=== PATIENT | male | born 1960 | race Caucasian/White ===

== ENCOUNTER 2024-09-23 10:53 | Emergency (ER) | payer MEDICARE, OTHER, SELFPAY ==
[2024-09-23 10:54] VITALS: BP 130/75; PULSE 102; RESP 16; TEMP 36.6; O2SAT 98; BMI 34.1
--- NOTE | 2024-09-23 11:21 | EKG12_ITS ---
Test Reason : SOB Blood Pressure : */* mmHG Vent. Rate : 94 BPM Atrial Rate : 94 BPM P-R Int : 182 ms QRS Dur : 88 ms QT Int : 354 ms P-R-T Axes : 35 -6 9 degrees QTcB Int : 442 ms Normal sinus rhythm Minimal voltage criteria for LVH, may be normal variant ( R in aVL ) Borderline ECG Confirmed by FIDENCIO DUNCAN, YOSSI ([id number]), digital editor SHAYNE ROSAS ([id number]) on 09/28/2024 9:01:30 AM Referred By: JANET/RU Confirmed By: YOSSI NICOLAS MD
--- NOTE | 2024-09-23 11:21 | RAD_ITS ---
PROCEDURE: CHEST PA AND LATERAL 09/23/2024 REASON FOR EXAM: PLEURITIC RIGHT-SIDED CHEST PAIN TECHNIQUE: Frontal and lateral views of the chest. COMPARISON: None FINDINGS: Hardware: EKG electrodes are seen. Heart: Heart size is upper limits of normal. Mediastinum: The mediastinal contour is unremarkable. Lungs: Focal increased markings are seen in the posterior medial segment of the right lower lobe. Early infiltrate should be ruled out. Bones: Degenerative changes are identified within the thoracic spine. RAD/Chest PA and Lateral IMPRESSION: Findings suggestive of focal right lower lobe infiltrate. Reading Location: [id number]
[2024-09-23 11:40] LABS: Absolute Lymphocyte Count 1.24 X10^3/uL (0.83-4.51); Absolute Neutrophil Count 4.8 X10^3/uL (2.0-7.7); Basophil# 0.04 X10^3/uL; Basophil% 0.6 % (0-1); Eosinophils% 2.9 % (0-5); Hematocrit 40.3 % (40-54); Hemoglobin 14.3 g/dL (13.0-16.5); Lymphocyte # 1.24 X10^3/ul (0.83-4.51); Lymphocyte % 17.7 % (19-41); Mean Corp Hgb Conc 35.5 g/dL (32-36); Mean Corpuscular Hgb 33.4 pg (27.0-32.0); Mean Corpuscular Volume 94.2 fL (80-94); Mean Platelet Vol. 9.2 fl (6.2-12.0); NRBC Flagged by Analyzer 0 % (0-5); Neutrophil # 4.78 X10^3/uL (2.7-7.7); Neutrophil % 68.4 % (47-70); Platelet Count 184 K/mm3 (150-450); RBC Distribution Width CV 12.2 % (11.6-14.6); RBC Distribution Width SD 42.3 fl (35.1-43.9); Red Blood Count 4.28 M/mm3 (4.6-6.2)
[2024-09-23 11:52] LABS: D-Dimer Quantitative (DVT/PE) 0.33 FEU/ug/m (0.27-0.49)
[2024-09-23 11:58] VITALS: BP 138/77; PULSE 85; RESP 17; O2SAT 96
[2024-09-23 12:00] VITALS: BP 130/84; PULSE 85; RESP 16; O2SAT 96
--- NOTE | 2024-09-23 12:05 | EDS_ITS ---
HPI History of Present Illness Chief Complaint: Chest Pain Detail of Chief Complaint: Right-sided pleuritic chest pain that started several days ago. Informant: patient and spouse/S.O. Onset/Context/Timing Onset: Days Activity at onset: sudden and rest Timing: Continuous and Waxes and wanes Quality: Positive for Aching Location: Right Chest Current Severity: Mild Maximum Severity: Severe Worsened By: Movement of Arm, Movement of Torso, Palpation and Breathing Relieved By: Nothing Associated Symptoms: Positive for Dyspnea and Cough; Negative for Nausea, Vomiting, Diaphoresis, Fever, Lightheadedness, Acid Reflux or Palpitations Narrative Narrative: Patient is a 64-year-old gentleman. He is on disability due to cervical fusion C4-7, chemical exposure to his lungs with restrictive lung disease with 30% capacity. He also has history of COPD. He has no history of PE or DVT. He denies leg pain, swelling discoloration. He denies trauma. He denies fever or chills. Denies headache, visual, ocular auditory symptoms. He denies sore throat. He has mild congestion. states he will need a metal sheet roller operator in the area since her here significant out of time. Also he is undergoing rheumatoid workup for possible RA. She states she will need a general practitioner as well. Prior Similar Symptoms: No Recent Illness/Hospitalization: No PE Risk Factors: Positive for Recent Travel/Surgery; Negative for Recent Immobilization, Prior DVT or PE, Cancer or OCP + Smoking + >/=35 TAD Risk Factors: Positive for Hypertension; Negative for Marfan's Syndrome or Family History [facility] Medical History Tremors of nervous system PTSD (post-traumatic stress disorder) COPD (chronic obstructive pulmonary disease) Home Medications ?Medication ?Instructions ?Recorded ?Last Taken ?Type doxycycline monohydrate 100 mg 100 mg PO BID #14 CAPSU LES 09/23/24 Unknown Rx capsule Allergy/AdvReac Type Severity Reaction Status Date / Time No Known Allergies Allergy Verified 09/23/24 11:32 Surgical History (Updated 09/23/24 @ 11:29 by Yohana Orozco) H/O discectomy Social History (Updated 09/23/24 @ 12:[address] Buck Her MD) household members: spouse Smoking Status: Former smoker ROS ROS ED Constitutional Constitutional ED: Reports chills and sweats; Denies fever(s), subjective or weight loss Eyes Eyes: Reports none ENT ENT ED: Denies ear pain, rhinorrhea or sore throat Cardiovascular Cardiovascular: Reports as per HPI; Denies orthopnea or paroxysmal nocturnal dyspnea Respiratory/Chest Respiratory/Chest: Reports cough, dyspnea and dyspnea on exertion; Denies orthopnea or paroxysmal nocturnal dyspnea Gastrointestinal Gastrointestinal: Denies abdominal pain, melena, nausea or vomiting Genitourinary Genitourinary ED: Denies dysuria, hematuria or urinary frequency Musculoskeletal Musculoskeletal: Denies arthralgias or myalgias Integumentary Denies rash Neurologic Neurologic: Denies headache(s) or paresthesias Psychiatric Psychiatric: Denies anxiety or depression Endocrine Endocrinology: Denies cold intolerance or heat intolerance Hematologic/Lymphatic Hematologic/Lymphatic: Denies easy bleeding or easy bruising EXAM Physical Exam Const Vital Signs: 09/23/24 10:54 09/23/24 11:27 09/23/24 11:58 Temperature 97.9 F Temperature Source Oral Pulse Rate 102 H 85 Respiratory Rate 16 17 Respiratory Effort Normal Blood Pressure 130/75 H 138/77 H Blood Pressure Mean 93 97 Pulse Ox 98 96 Oxygen Delivery Method Room Air Room Air 09/23/24 12:00 09/23/24 13:00 Temperature Temperature Source Pulse Rate 85 86 Respiratory Rate 16 16 Respiratory Effort Blood Pressure 130/84 H 138/71 H Blood Pressure Mean 99 93 Pulse Ox 96 96 Oxygen Delivery Method Room Air Room Air Positive well nourished and well developed Constitutional Narrative: BMI is 34.1. General Appearance ED: well developed HEENT Reports TM's clear and moist mucous membranes normocephalic and atraumatic Tympanic Membrane ED: Yes TM's clear Eyes PERRL and EOMs intact bilaterally General Eye ED: Negative for pale conjunctiva or scleral icterus Neck no lymphadenopathy, supple and no JVD Chest Wall inspection of chest normal and palpation of chest normal Chest Narrative: Patient has pain to palpation right side. There is no skin lesions noted. There is no crepitus or subcutaneous air. Resp normal respiratory effort and clear to auscultation bilaterally Cardio regular rate, regular rhythm, S1 normal heart sound, S2 normal heart sound and no murmurs GI normal to inspection, nondistended, normoactive bowel sounds, soft to palpation, non-tender, non-distended and no masses; Negative for hepatosplenomegaly Back/Spine no CVA tenderness and no thoracic nor lumbar tenderness Extremity normal to inspection General Extremety ED: Negative for edema or pulses abnormal General Extremity: Negative for edema or pulses abnormal Neuro oriented x3, CN's II-XII intact bilaterally, no sensory deficits noted and gait normal Sensorium / Orientation: awake and alert Motor Exam: strength 5/5 throughout Psych mental status grossly normal Skin no rashes or lesions noted and no wounds MDM MDM MDM Narrative Medical decision making narrative: Differential diagnosis is pleurisy, pneumonia, pneumothorax, pulmonary embolus and musculoskeletal since there is a muscular component. Workup included chest x-ray, D-dimer, CBC and electrolytes to assess for endorgan dysfunction. Lab Data Attestation: I reviewed the patient's lab results. Lab results narrative: CBC is unremarkable. Electrolyte panel is unremarkable. Glucose slightly elevated 100 with normal CO2 anion gap. Labs: Laboratory Results - last 24 hr 09/23/24 11:28 WBC 7.0 RBC 4.28 L Hgb 14.3 Hct 40.3 MCV 94.2 H MCH 33.4 H MCHC 35.5 RDW Std Deviation 42.3 RDW Coeff of Nighat 12.2 Plt Count 184 MPV 9.2 Immature Gran % (Auto) 0.400 Neut % (Auto) 68.4 Lymph % (Auto) 17.7 L [place] % (Auto) 10.0 Eos % (Auto) 2.9 Baso % (Auto) 0.6 Absolute Neuts (auto) 4.8 Absolute Lymphs (auto) 1.24 Nucleated RBC % 0 D-Dimer Quant (PE/DVT) 0.33 Sodium 131 L Potassium 4.5 Chloride 97 L Carbon Dioxide 23.6 Anion Gap 10 BUN 13 Creatinine 0.78 Estim Creat Clear Calc 122.03 Est GFR (MDRD) Non-Af 99 BUN/Creatinine Ratio 17.1 Glucose 100 H Calcium 9.2 Radiography Chest X-Ray - ED: 2 View and Read by ED Physician (Independently reviewed interpreted by me as negative for congestive heart failure or effusion, pneumothorax. There is evidence of a small right lower infiltrate probably superior segment of the right lower lobe. Cardiac size is normal. Osseous structures reveal no abnormality) Diagnostic Testing: Clinical Impression(s) from Imaging Studies Chest X-Ray 09/23/24 11:21 IMPRESSION: Findings suggestive of focal right lower lobe infiltrate. Reading Location: [id number] Treatment and Re-Evaluation :: Curb 65 score is 0. PSI/port score is 64. Risks class II with a 0.6 to 0.9% mortality. Patient is appropriate for outpatient therapy. He was treated with doxycycline. Discharge Plan Triage Chief Complaint: Chest Pain ED Provider: Buck Her Dx/Rx/DC Orders Clinical Impression: Right lower lobe pneumonia, Pleuritic chest pain, History of COPD, Diabetes mellitus with hyperglycemia, Chronic restrictive lung disease Instructions: ED Pneumonia (Adult) Prescriptions: New doxycycline monohydrate 100 mg capsule 100 mg PO BID Qty: 14 0RF Primary Care Provider: KATHI PARADA Referrals: KATIH PARADA [Other] Bridgette Feldman MD [Med Staff - Supervisor Fine Grading] - 3-5 Days Isael Johnson DO [Med Staff - Active Staff] - 1-2 Weeks Jethro Chapman MD [Med Staff - Courtesy Staff] - 1-2 Weeks Activity Restrictions/Additional Instructions: Take medication as prescribed and until gone. You are referred to Dr. Zaragoza as he has a general internal medicine doctor. You were referred to Dr. Isael Johnson who is a metal sheet roller operator. In your referred to Dr. Jethro Chapman who is an dowel pin man. Print Language: Swedish Disposition Disposition: Home, Self Care
[2024-09-23 12:33] LABS: Anion Gap 10 (5-15); BUN 13 mg/dL (4-19); BUN/Creat Ratio 17.1 RATIO (10-20); Calcium,Total 9.2 mg/dL (7.6-11.0); Carbon Dioxide 23.6 mmol/L (21.0-32.0); Chloride 97 mmol/L (98-108); Creatinine, Serum 0.78 mg/dL (0.70-1.20); EST Glomerular Filtration Rate 99 (>60); Estimated Creatinine Clearance 122.03 ml/min (50-250); Glucose 100 mg/dL (70-99); Potassium 4.5 mmol/L (3.3-5.1); Sodium Level 131 mmol/L (133-145)
[2024-09-23 13:00] VITALS: BP 138/71; PULSE 86; RESP 16; O2SAT 96
[2024-09-23 13:17] VITALS: BP 125/74; PULSE 91; RESP 22; TEMP 36.9; O2SAT 97
[2024-09-23] MEDS: Doxycycline 100 MG CAPSULE PO (13:18)
== END 2024-09-23 13:34 | disposition home or self-care (01) ==
PROVIDERS: Emergency Provider Emergency Medicine; Visit Provider Emergency Medicine
DX: J18.9 Pneumonia, unspecified organism (principal); J44.9 Chronic obstructive pulmonary disease, unspecified; E11.65 Type 2 diabetes mellitus with hyperglycemia; R07.89 Other chest pain; Z87.891 Personal history of nicotine dependence; J98.4 Other disorders of lung; I10 Essential (primary) hypertension
CPT/HCPCS: 71046; 80048; 85025; 85379; 93005; 99284; A4216

== ENCOUNTER → 2025-01-21 | Outpatient (CLI) | payer MEDICARE, OTHER, SELFPAY ==
--- NOTE | 2025-01-21 12:43 | RAD_ITS ---
PROCEDURE: CHEST PA AND LATERAL 01/21/2025 REASON FOR EXAM: COUGH TECHNIQUE: Procedure Code: RADCXR Modality: DX Procedure: CHEST PA AND LATERAL COMPARISON: Prior study dated September 23, 2024. FINDINGS: Hardware: None Heart: Heart size is upper limits of normal. Mediastinum: The mediastinal contour is unremarkable. Lungs: The lungs are clear. Bones: The bones are unremarkable. RAD/Chest PA and Lateral IMPRESSION: NO ACUTE FINDINGS. Reading Location: [id number]
== END | disposition home or self-care (01) ==
PROVIDERS: Referring Provider Physician Assistant Surgical; Visit Provider Physician Assistant Surgical
DX: R05.9 Cough, unspecified (principal)
CPT/HCPCS: 71046

== ENCOUNTER 2025-01-23 11:29 | Emergency (ER) | payer MEDICARE, OTHER, SELFPAY ==
[2025-01-23 11:30] VITALS: BP 143/92; PULSE 87; RESP 14; TEMP 37.2; O2SAT 96; BMI 33.0
[2025-01-23 12:18] VITALS: PULSE 87; RESP 16
--- NOTE | 2025-01-23 12:18 | EDS_ITS ---
HPI History of Present Illness Chief Complaint: Shortness of Breath Narrative Narrative: Patient is a 64-year-old male with past medical history of ulcerative colitis, anemia, prediabetic, hypertension, PTSD, COPD who presents to the emergency department with a chief complaint of cough, congestion and not feeling well. He is also complaining of blood coming from his left ear. Patient denies any trauma to his ear he states that he woke up and noted that he had blood in his ear. Patient states that he is around his grandchild currently and notes that she has been sick recently. They note that he has been ill for the last several days and they went to urgent care which she was given azithromycin which she has been taking for 3 days and was given steroid pack. They state that they have not started the steroids yet because his liver enzymes have been out of whack ever since doing a treatment and wanted to be sure that this was okay therefore they were trying to get a hold of his physician [facility] Medical History Ulcerative colitis Anemia Diabetes Heart disease Gout Hypertension Tremors of nervous system PTSD (post-traumatic stress disorder) COPD (chronic obstructive pulmonary disease) Home Medications ?Medication ?Instructions ?Recorded ?Last Taken ?Type allopurinol 100 mg tablet 100 mg PO QDAY 01/21/25 Unkn own History ascorbic acid (vitamin C) 500 mg 500 mg PO QDAY Unknown History tablet aspirin 81 mg tablet,delayed 81 mg PO QDAY 01/21/25 Un known History release (Adult Aspirin Regimen) azithromycin 250 mg tablet See Rx Instructions PO .COM PLEX #6 01/21/25 Unknown Rx tabs carvedilol 6.25 mg tablet 6.25 mg PO BID 01/21/25 Unkn own History ergocalciferol (vitamin D2) 1,250 1,250 mcg PO QWEEK 0 01/21/25 Unknown History mcg (50,000 unit) capsule fenofibrate nanocrystallized 145 145 mg PO QDAY Unknown History mg tablet (Tricor) ipratropium bromide 21 mcg (0.03 2 spray intranasal BI D-TID PRN 01/21/25 Unknown Rx %) nasal spray postnasal drainage #30 mL lisinopril 20 mg tablet 20 mg PO QDAY 01/21/25 Unkno wn History mesalamine 1,000 mg rectal 4 g ND QHS PRN 01/21/25 Unk nown History suppository metformin 1,000 mg tablet 1,000 mg PO QDAY 01/21/25 Un known History methylprednisolone 4 mg tablets in 4 mg PO PER PKG DIR 6 days #21 tabs 01/21/25 Unknown Rx a dose pack (Medrol (Reese)) nortriptyline 10 mg capsule 10 mg PO QHS 01/21/25 Unkn own History primidone 50 mg tablet 50 mg PO QHS 01/21/25 Unknow n History albuterol sulfate 90 mcg/actuation 2 inh inhalation Q4 H PRN shortness 01/23/25 Unknown Rx breath activated powder inhaler of breath or wheezing #1 ea doxycycline hyclate 100 mg capsule 100 mg PO BID 5 day s #10 caps 01/23/25 Unknown Rx Allergy/AdvReac Type Severity Reaction Status Date / Time No Known Allergies Allergy Verified 01/23/25 11:30 Family History Other Cancer Heart disease Surgical History History of repair of macular hole History of vasectomy History of knee replacement H/O discectomy Social History household members: spouse Smoking Status: Former smoker alcohol intake: current alcohol intake frequency: 0-2 drinks per day Alcohol type: beer ROS ROS ED ROS Narrative Constitutional: Denies any fevers, chills, headaches Eyes, ears, nose: Complains of blood coming from the left ear as well as nasal congestion denies double vision blurry vision change in vision Cardiovascular: Denies chest pain Respiratory: Complains of cough states that he is coughing up more sputum than normal Abdomen: Denies nausea vomiting diarrhea : Denies urinary symptoms Neurological: Complains of generalized weakness denies any numbness or tingling Musculoskeletal: Denies back pain Skin: Denies any rashes or lesions EXAM Physical Exam Narrative Exam Narrative: General: Patient was lying in bed rest comfortably did not appear in any acute distress Head: Atraumatic, normocephalic Eyes, ears, nose, throat: Patient has a ruptured tympanic membrane at the 4 o'clock position in the left ear PERRL bilaterally, EOMI bilaterally, no conjunctival injection noted Neck: Soft, supple, trachea midline Cardiovascular: Regular rate and rhythm Respiratory: Clear to auscultation bilaterally no rales rhonchi or wheezes noted Abdomen: No tenderness to palpation Extremities: +5/5 strength noted in the bilateral upper and lower extremities Neurological: Patient following commands knew that he was at [facility] the year is 2024 Skin: Warm, dry, intact no rashes or lesions noted Const Vital Signs: 01/23/25 11:30 01/23/25 12:18 01/23/25 12:26 Temperature 98.9 F Temperature Source Temporal Pulse Rate 87 87 Respiratory Rate 14 16 Respiratory Effort Respiratory Depth Respiratory Pattern Normal Blood Pressure 143/92 H Blood Pressure Mean 109 Pulse Ox 96 Oxygen Delivery Method Room Air Room Air 01/23/25 12:28 01/23/25 13:30 01/23/25 15:00 Temperature Temperature Source Pulse Rate 76 79 Respiratory Rate 18 19 H Respiratory Effort Short of Breath Respiratory Depth Normal Respiratory Pattern Normal Blood Pressure 124/87 H 115/89 H Blood Pressure Mean 99 97 Pulse Ox 99 98 Oxygen Delivery Method Room Air Room Air MDM MDM MDM Narrative Medical decision making narrative: Patient is a 64-year-old male who presents to the emergency department chief co mplaint of generalized fatigue, cough, shortness of breath, blood coming from the left ear. On the differential diagnose includes but limited to ruptured tympanic membrane, pneumonia, pneumothorax, ACS, CHF. Once workup is obtained reviewed he will be reevaluated. Patient be given liter of IV fluids as well as DuoNebs. [place] Score (Revised) for Pulmonary Embolism from [email or web address] on 01/23/2025 All calculations should be rechecked by clinician prior to use RESULT SUMMARY: 3 points Low risk group: 7-9% incidence of PE from several studies. INPUTS: Age >65 ?> 0 = No Previous DVT or PE ?> 0 = No Surgery (under general anesthesia) or lower limb fracture in past month ?> 0 = No Active malignant condition ?> 0 = No Unilateral lower limb pain ?> 0 = No Hemoptysis ?> 0 = No Heart rate ?> 3 = 75-94 Pain on lower limb palpation and unilateral edema ?> 0 = No Patient CBC reviewed showed no evidence leukocytosis white blood count normal 7.4, hemoglobin 14.5, platelet count 154. Patient sodium was 136, potassium normal 4.6, creatinine was 0.79. Patient's troponin was 7 with a delta troponin of 7. Patient's EKG was reviewed as well which showed sinus rhythm with a rate of 83 bpm with ND interval normal at 182. Patient proBNP was less than 36. Patient's chest x-ray reviewed by myself and by radiology showed no acute cardiopulmonary processes. Patient ambulated well here in the emergency department no hypoxia no tachycardia. He was advised to discontinue azithromycin and start taking doxycycline that was sent to his pharmacy he will be given a MDI albuterol inhaler for shortness of breath and wheezing for COPD. He is advised to start taking the steroids that he was prescribed by the urgent care as well. He is encouraged to return with worsening symptoms or any other concerns. He is advised to follow-up with his ears nose and throat physician for his ruptured tympanic membrane on the left side. They are agreeable with this plan all question concerns answered he is discharged home in stable condition. Lab Data Labs: Laboratory Results - last 24 hr 01/23/25 01/23/25 12:25 14:40 WBC 7.4 RBC 4.23 L Hgb 14.5 Hct 40.7 MCV 96.2 H MCH 34.3 H MCHC 35.6 RDW Std Deviation 41.4 RDW Coeff of [place] 11.8 Plt Count 154 MPV 9.8 Immature Gran % (Auto) 0.700 Neut % (Auto) 61.4 Lymph % (Auto) 26.9 [place] % (Auto) 7.6 Eos % (Auto) 2.7 Baso % (Auto) 0.7 Absolute Neuts (auto) 4.5 Absolute Lymphs (auto) 1.99 Nucleated RBC % 0 Sodium 136 Potassium 4.6 Chloride 101 Carbon Dioxide 22.4 Anion Gap 12 BUN 12 Creatinine 0.79 Estim Creat Clear Calc 121.16 Est GFR (MDRD) Non-Af 99 BUN/Creatinine Ratio 15.6 Glucose 106 H Calcium 8.9 Troponin T High Sens 7 Troponin T Hi Sens 2 Hr 7 NT pro BNP II < 36 Radiography Diagnostic Testing: Clinical Impression(s) from Imaging Studies Chest X-Ray 01/23/25 12:35 IMPRESSION: Negative for acute cardiopulmonary disease. Reading Location: [id number] Discharge Plan Triage Chief Complaint: Shortness of Breath ED Provider: Kip Tucker Dx/Rx/DC Orders Clinical Impression: Hypertension, Rupture of tympanic membrane, COPD exacerbation, Upper respiratory infection, viral Prescriptions: New albuterol sulfate 90 mcg/actuation aerosol powdr breath activated 2 inh inhalation Q4H PRN (Reason: shortness of breath or wheezing) Qty: 1 0RF doxycycline hyclate 100 mg capsule 100 mg PO BID 5 Days Qty: 10 0RF No Action aspirin [Adult Aspirin Regimen] 81 mg tablet,delayed release (DR/EC) 81 mg PO QDAY carvedilol 6.25 mg tablet 6.25 mg PO BID Rx Instructions: must administer with a meal/food primidone 50 mg tablet 50 mg PO QHS allopurinol 100 mg tablet 100 mg PO QDAY metformin 1,000 mg tablet 1,000 mg PO QDAY nortriptyline 10 mg capsule 10 mg PO QHS ascorbic acid (vitamin C) 500 mg tablet 500 mg PO QDAY fenofibrate nanocrystallized [Tricor] 145 mg tablet 145 mg PO QDAY lisinopril 20 mg tablet 20 mg PO QDAY ergocalciferol (vitamin D2) 1,250 mcg (50,000 unit) capsule 1,250 mcg PO QWEEK mesalamine 1,000 mg suppository 4 g ND QHS PRN azithromycin 250 mg tablet See Rx Instructions PO .COMPLEX Qty: 6 0RF Rx Instructions: take 500 mg today (day 1), then 250 mg for 4 days (days 2-5) PO ipratropium bromide 21 mcg (0.03 %) spray,non-aerosol 2 spray intranasal BID-TID PRN (Reason: postnasal drainage) Qty: 30 0RF Rx Instructions: administer into each nostril methylprednisolone [Medrol (Reese)] 4 mg tablets,dose pack 4 mg PO PER PKG DIR 6 Days Qty: 21 0RF Primary Care Provider: KATHI PARADA Referrals: KATHI PARADA [Other] Activity Restrictions/Additional Instructions: Start taking the steroids at urgent care prescribed you. Stop taking the azithromycin and take the doxycycline. Use inhaler that was sent to your pharmacy as prescribed. Return with worsening symptoms or other concerns. Follow-up with your ears nose and throat physician for the ruptured tympanic membrane in your left ear that is why there was blood in your ear. Do not put any drops or anything in your ear keep this dry. Print Language: Japanese Disposition Disposition: Home, Self Care
[2025-01-23 12:34] LABS: Hematocrit 40.7 % (40-54); Hemoglobin 14.5 g/dL (13.0-16.5); Immature Granulocytes Count 0.050 X10^3/uL (0.0-0.0); Mean Corp Hgb Conc 35.6 g/dL (32-36); Mean Corpuscular Volume 96.2 fL (80-94); Mean Platelet Vol. 9.8 fl (6.2-12.0); NRBC Flagged by Analyzer 0 % (0-5); Platelet Count 154 K/mm3 (150-450); RBC Distribution Width CV 11.8 % (11.6-14.6); RBC Distribution Width SD 41.4 fl (35.1-43.9); Red Blood Count 4.23 M/mm3 (4.6-6.2); White Blood Count 7.4 K/mm3 (4.4-11.0)
[2025-01-23] MEDS: 0.9% Normal Saline (1000mL) 1,000 ML 999 ML IV (12:35)
--- NOTE | 2025-01-23 12:35 | RAD_ITS ---
PROCEDURE: CHEST PA AND LATERAL 01/23/2025 REASON FOR EXAM: SOB TECHNIQUE: Procedure Code: RADCXR Modality: DX Procedure: CHEST PA AND LATERAL COMPARISON: Recent prior exam FINDINGS: Hardware and support lines: None. Heart: Upper limits of normal-size. Lungs: Negative for infiltrates, or pulmonary edema. Pleura: No pleural thickening. No pleural effusion. Mediastinum and aorta: Negative for hilar adenopathy. Mildly tortuous thoracic aorta. Bones: Slight degenerative changes of the shoulders. Age-appropriate degenerative changes of the spine. Other: Remainder of the exam negative. RAD/Chest PA and Lateral IMPRESSION: Negative for acute cardiopulmonary disease. Reading Location: [id number]
--- OUTSIDE RECORDS SUMMARY | 2025-01-23 12:38 | XMS RPT_ITS | CCD ---
Author Organization [facility] Care Team Providers Care Greeting Card Editor Name Role Phone TRAVON LORA Referring Unavailable TRAVON LORA Referring Unavailable TRAVON LORA Referring Unavailable Travon Lora Attending Unavailable Dr. Buck Her MD Emergency Provider KATHI PARADA Primary Care Provider SUJATHA KULKARNI Primary Care Unavailable Buck Her Attending Unavailable Dr. Buck Her MD Attending Provider [phone] Romulo Salinas Attending Provider Romulo Salinas Referring Provider [phone] Medications Current Medications Medication Drug Class(es) Dates Sig (Normalized) Sig (Original) allopurinol 100 mg oral tablet (1 source) Xanthine Oxidase Inhibitor Start: 01-21-2025 take 1 tablet by mouth once daily Allopurinol 100 mg tablet Active 100 mg PO daily January 21, 2025 12:00am ascorbic acid 500 mg oral tablet (1 source) Vitamin C Start: 01-21-2025 take 1 tablet by mouth once daily Ascorbic Acid (Vitamin C) 500 mg tablet Active 500 mg PO daily January 21, 2025 12:00am aspirin 81 mg delayed release oral tablet (1 source) Platelet Aggregation Inhibitor, Nonsteroidal Anti-inflammatory Drug Start: 01-21-2025 take 1 tablet by mouth once daily Aspirin (Adult Aspirin Regimen) 81 mg tablet,delayed release (DR/EC) Active 81 mg PO daily January 21, 2025 12:00am carvedilol 6.25 mg oral tablet (1 source) alpha-Adrenergic Corona, beta-Adrenergic Corona Start: 01-21-2025 take 1 tablet by mouth twice daily at mealtime Carvedilol 6.25 mg tablet Active 6.25 mg PO TWICE A DAY January 21, 2025 12:00am must administer with a meal/food ergocalciferol 1.25 mg oral capsule (1 source) Provitamin D2 Compound Start: 01-21-2025 Ergocalciferol (Vitamin D2) 1,250 mcg (50,000 unit) capsule Active 1250 ug PO EVERY WEEK January 21, 2025 12:00am fenofibrate 145 mg oral tablet (1 source) Peroxisome Proliferator Receptor alpha Agonist Start: 01-21-2025 take 1 tablet by mouth once daily Fenofibrate Nanocrystallized (Tricor) 145 mg tablet Active 145 mg PO daily January 21, 2025 12:00am lisinopril 20 mg oral tablet (1 source) Angiotensin Converting Enzyme Inhibitor Start: 01-21-2025 take 1 tablet by mouth once daily Lisinopril 20 mg tablet Active 20 mg PO daily January 21, 2025 12:00am mesalamine 1000 mg rectal suppository (1 source) Aminosalicylate Start: 01-21-2025 Mesalamine 1,000 mg suppository Active 4 g RC AT BEDTIME as needed January 21, 2025 12:00am metFORMIN hydrochloride 1000 mg oral tablet (1 source) Biguanide Start: 01-21-2025 take 1 tablet by mouth once daily Metformin 1,000 mg tablet Active 1000 mg PO daily January 21, 2025 12:00am nortriptyline 10 mg oral capsule (1 source) Tricyclic Antidepressant Start: 01-21-2025 take 1 capsule by mouth at bedtime Nortriptyline 10 mg capsule Active 10 mg PO AT BEDTIME January 21, 2025 12:00am primidone 50 mg oral tablet (1 source) Anti-epileptic Agent Start: 01-21-2025 take 1 tablet by mouth at bedtime Primidone 50 mg tablet Active 50 mg PO AT BEDTIME January 21, 2025 12:00am Completed/Discontinued Medications Medication Drug Class(es) Dates Sig (Normalized) Sig (Original) cholecalciferol 0.025 mg oral capsule (1 source) Vitamin D Start: 01-21-2025 End: 01-21-2025 take 1 capsule by mouth once daily Cholecalciferol (Vitamin D3) 25 mcg (1,000 unit) capsule Discontinued 25 ug PO daily January 21, 2025 12:00am January 21, 2025 12:14pm doxycycline monohydrate 100 mg oral capsule (2 sources) Tetracycline-cl ass Drug Start: 09-23-2024 End: 01-21-2025 take 1 capsule by mouth twice daily Doxycycline Monohydrate 100 mg capsule Discontinued 100 mg PO TWICE A DAY 14 0 September 23, 2024 12:00am January 21, 2025 11:57am Problems Problem Classification Problem Date Documented Date Episodic/Chronic Diabetes mellitus with complications (2 sources) Hyperglycemia due to diabetes mellitus; Translations: [Type 2 diabetes mellitus with hyperglycemia] 09-23-2024 Chronic Diabetes mellitus without complication (1 source) Diabetes mellitus; Translations: [Type 2 diabetes mellitus without complications] 01-21-2025 Chronic Essential hypertension (1 source) Hypertensive disorder; Translations: [Essential (primary) hypertension] 01-21-2025 Chronic Inflammation; infection of eye (except that caused by tuberculosis or sexually transmitteddisease) (2 sources) Acute infectious conjunctivitis; Translations: [Unspecified acute conjunctivitis, unspecified eye] 01-21-2025 Episodic Nonspecific chest pain (3 sources) Other chest pain; Translations: [Chest pain, unspecified] Onset: 07-29-2018 Episodic Other and ill-defined heart disease (1 source) Heart disease; Translations: [Heart disease, unspecified] 01-21-2025 Chronic Other lower respiratory disease (2 sources) History of chronic obstructive airway disease; Translations: [Personal history of other diseases of the respiratory system] 09-23-2024 Episodic Other lower respiratory disease (2 sources) Pleuritic pain; Translations: [Pleurodynia] 09-23-2024 Episodic Other lower respiratory disease (2 sources) Restrictive lung disease; Translations: [Other disorders of lung] 09-23-2024 Episodic Other non-traumatic joint disorders (2 sources) Other specified arthritis, unspecified site; Translations: [Other specified arthritis, unspecified site] Onset: 08-04-2018 Chronic Pneumonia (except that caused by tuberculosis or sexually transmitted disease) (2 sources) Right lower zone pneumonia; Translations: [Pneumonia, unspecified organism] 09-23-2024 Episodic Residual codes; unclassified (1 source) Pain, unspecified; Translations: [Pain, unspecified] Onset: 08-04-2018 Results Test Name Value Interpretation Reference Range Facility 12 Lead EKGon 09-23-2024 12 Lead EKG [facility] Cardiovascular Services [address] [place] [address] 12 Lead EKG 09/23/24 1101 MR#: [id number] Acct: [id number] Name: CONCHA MTZ Rep #: [id number] : 1960 64 From: Chai Hendrix MD Attending Dr: Status: DEP ER Ordering Dr: Buck Her MD Date: 09/23/24 Location: ED Sex: M C Admitted: Test Reason : SOB Blood Pressure : */* mmHG Vent. Rate : 94 BPM Atrial Rate : 94 BPM P-R Int : 182 ms QRS Dur : 88 ms QT Int : 354 ms P-R-T Axes : 35 -6 9 degrees QTcB Int : 442 ms Normal sinus rhythm Minimal voltage criteria for LVH, may be normal variant ( R in aVL ) Borderline ECG Confirmed by CHAI HENDRIX MD ([id number]), photograph editor SHAYNE ROSAS ([id number]) on 09/28/2024 9:01:30 AM Referred By: AUNDREA/RU Confirmed By: CHIA HENDRIX MD 09/28/24 0901 Date Chai Hendrix MD CC: Dr. Buck Her MD; KATHI PARADA Signed Normal [facility] Absolute lymphocyte countOrd ered By: Buck Her on 09-23-2024 Lymphocytes Auto (Unsp spec) [#/Vol] 1.24 10*3/uL 0.83-4.51 [facility] Absolute neutrophil countOrd ered By: Buck Her on 09-23-2024 Neutrophils (Bld) [#/Vol] 4.8 10*3/uL 2.0-7.7 [facility] Anion gap in Serum or Plasma Ordered By: Buck Her on 09-23-2024 Anion gap [Moles/Vol] 10 mmol/L 09-24 [facility] Automated lymphocyte count a s percentage of total leukocytesOrdered By: Buck Her on 09-23-2024 Lymphocytes/100 WBC Auto (Unsp spec) 17.7 % Low [facility] BUN/creatinine ratioOrdered By: Buck Her on 09-23-2024 Urea nitrogen/Creatinine [Mass ratio] 17.1 mg/mg - [facility] Basic Metabolic Profile (BMP )on 09-23-2024 BUN/CRE 17.1 RATIO Normal - [facility] Comment on above: Performed By: #### L 500.2500, L100.0100, L300.8000 #### [facility] [address] [place], [address] Calcium [Mass/Vol] 9.2 mg/dL Normal 7.6-11.0 [facility] Comment on above: Performed By: #### L 500.2500, L100.0100, L300.8000 #### [facility] [address] [place], [address] Chloride [Moles/Vol] 97 mmol/L Low 98-108 [facility] Comment on above: Performed By: #### L 500.2500, L100.0100, L300.8000 #### [facility] [address] [place], [address] CO2 [Moles/Vol] 23.6 mmol/L Normal 21.0-32.0 [facility] Comment on above: Performed By: #### L 500.2500, L100.0100, L300.8000 #### [facility] [address] [place], [address] Creatinine [Mass/Vol] 0.78 mg/dL Normal 0.70-1.20 [facility] Comment on above: Performed By: #### L 500.2500, L100.0100, L300.8000 #### [facility] [address] [place], [address] ECRCL 122.03 ml/min Normal 50-250 [facility] Comment on above: Performed By: #### L 500.2500, L100.0100, L300.8000 #### [facility] [address] [place], [address] GAP 10 Normal 5-15 [facility] Comment on above: Performed By: #### L 500.2500, L100.0100, L300.8000 #### [facility] [address] [place], [address] GFR/1.73 sq M.predicted among non-blacks MDRD (S/P/Bld) [Vol rate/Area] 99 mL/min/{1.73_m2} Normal >60 [facility] Comment on above: Result Comment: mL/m in/1.73m2 CKD-EPI Creatinine Equation (2020) Performed By: #### L 500.2500, L100.0100, L300.8000 #### [facility] [address] [place], [address] Glucose [Mass/Vol] 100 mg/dL High 70-99 [facility] Comment on above: Performed By: #### L 500.2500, L100.0100, L300.8000 #### [facility] [address] [place], [address] Potassium [Moles/Vol] 4.5 mmol/L Normal 3.3-5.1 [facility] Comment on above: Performed By: #### L 500.2500, L100.0100, L300.8000 #### [facility] [address] [place], [address] Sodium [Moles/Vol] 131 mmol/L Low 133-145 [facility] Comment on above: Performed By: #### L 500.2500, L100.0100, L300.8000 #### [facility] [address] [place], [address] Urea nitrogen [Mass/Vol] 13 mg/dL Normal 4-19 [facility] Comment on above: Performed By: #### L 500.2500, L100.0100, L300.8000 #### [facility] [address] [place], [address] Basophil percentageOrdered B y: Buck Her on 09-23-2024 Basophils/100 WBC (Bld) 0.6 % 0-1 [facility] CBC W/Diff, Automatedon 09-10 Absolute Lymph 1.24 X10 3/uL Normal 0.83-4.51 [facility] Comment on above: Performed By: #### L 500.2500, L100.0100, L300.8000 #### [facility] [address] [place], [address] Absolute Neut 4.8 X10 3/uL Normal 2.0-7.7 [facility] Comment on above: Performed By: #### L 500.2500, L100.0100, L300.8000 #### [facility] [address] [place], [address] Basophils/100 WBC (Bld) 0.6 % Normal 0-1 [facility] Comment on above: Performed By: #### L 500.2500, L100.0100, L300.8000 #### [facility] [address] [place], [address] Eosinophils/100 WBC (Bld) 2.9 % Normal 0-5 [facility] Comment on above: Performed By: #### L 500.2500, L100.0100, L300.8000 #### [facility] [address] [place], [address] Erythrocyte distribution width (RBC) [Ratio] 12.2 % Normal 11.6-14.6 [facility] Comment on above: Performed By: #### L 500.2500, L100.0100, L300.8000 #### [facility] [address] [place], [address] Hematocrit (Bld) [Volume fraction] 40.3 % Normal 40-54 [facility] Comment on above: Performed By: #### L 500.2500, L100.0100, L300.8000 #### [facility] [address] [place], [address] Hemoglobin (Bld) [Mass/Vol] 14.3 g/dL Normal 13.0-16.5 [facility] Comment on above: Performed By: #### L 500.2500, L100.0100, L300.8000 #### [facility] [address] [place], [address] IG% 0.400 Normal 0.0-0.9 [facility] Comment on above: Result Comment: IG% - Immature Granulocytes (promyelocytes, myelocytes and metamyelocytes) > 1% indicates that a LEFT SHIFT is Present. Performed By: #### L 500.2500, L100.0100, L300.8000 #### [facility] [address] [place], [address] Lymphocytes/100 WBC (Bld) 17.7 % Low 19-41 [facility] Comment on above: Performed By: #### L 500.2500, L100.0100, L300.8000 #### [facility] [address] [place], [address] MCH (RBC) [Entitic mass] 33.4 pg High 27.0-32.0 [facility] Comment on above: Performed By: #### L 500.2500, L100.0100, L300.8000 #### [facility] [address] [place], [address] MCHC (RBC) [Mass/Vol] 35.5 g/dL Normal 32-36 [facility] Comment on above: Performed By: #### L 500.2500, L100.0100, L300.8000 #### [facility] [address] [place], [address] MCV (RBC) [Entitic vol] 94.2 fL High 80-94 [facility] Comment on above: Performed By: #### L 500.2500, L100.0100, L300.8000 #### [facility] [address] [place], [address] Monocytes/100 WBC (Bld) 10.0 % Normal 0-10 [facility] Comment on above: Performed By: #### L 500.2500, L100.0100, L300.8000 #### [facility] [address] [place], [address] Neutrophils/100 WBC (Bld) 68.4 % Normal 47-70 [facility] Comment on above: Performed By: #### L 500.2500, L100.0100, L300.8000 #### [facility] [address] [place], [address] Nucleated RBC (Bld) [#/Vol] 0 10*3/uL Normal 0-5 [facility] Comment on above: Performed By: #### L 500.2500, L100.0100, L300.8000 #### [facility] [address] [place], [address] Platelet mean volume (Bld) [Entitic vol] 9.2 fL Normal 6.2-12.0 [facility] Comment on above: Performed By: #### L 500.2500, L100.0100, L300.8000 #### [facility] [address] [place], [address] Platelets (Bld) [#/Vol] 184 10*3/uL Normal 150-450 [facility] Comment on above: Performed By: #### L 500.2500, L100.0100, L300.8000 #### [facility] [address] [place], [address] RBC (Bld) [#/Vol] 4.28 10*6/uL Low 4.6-6.2 [facility] Comment on above: Performed By: #### L 500.2500, L100.0100, L300.8000 #### [facility] [address] [place], [address] RDW SD 42.3 fl Normal 35.1-43.9 [facility] Comment on above: Performed By: #### L 500.2500, L100.0100, L300.8000 #### [facility] [address] [place], [address] WBC (Bld) [#/Vol] 7.0 10*3/uL Normal 4.4-11.0 [facility] Comment on above: Performed By: #### L 500.2500, L100.0100, L300.8000 #### [facility] [address] [place], [address] Carbon dioxide, total [Moles /volume] in Central venous bloodOrdered By: Buck Her on 09-23-2024 CO2 [Moles/Vol] 23.6 mmol/L 21.0-32.0 [facility] Chest PA and Lateralon 09-23 Chest PA and Lateral [facility] Imaging Services [address] [place] [address] Chest PA and Lateral MR#: [id number] Acct: [id number] Name: CONCHA MTZ Rep #: [id number] : 1960 M 64 From: Jaxon salas MD PCP: Status: PRE ER Study: Chest PA and Lateral Date of Exam: 09/23/24 Exam# [id number] Ordering Dr: Buck Her MD PROCEDURE: CHEST PA AND LATERAL 09/23/2024 REASON FOR EXAM: PLEURITIC RIGHT-SIDED CHEST PAIN TECHNIQUE: Frontal and lateral views of the chest. COMPARISON: None FINDINGS: Hardware: EKG electrodes are seen. Heart: Heart size is upper limits of normal. Mediastinum: The mediastinal contour is unremarkable. Lungs: Focal increased markings are seen in the posterior medial segment of the right lower lobe. Early infiltrate should be ruled out. Bones: Degenerative changes are identified within the thoracic spine. RAD/Chest PA and Lateral IMPRESSION: Findings suggestive of focal right lower lobe infiltrate. Reading Location: [facility] CC: Dr. Buck Her MD Property Insurance Claims Examiner: Signed Normal [facility] Chloride assayOrdered By: Aundrea Her on 09-23-2024 Chloride [Moles/Vol] 97 mmol/L Low 98-108 [facility] D-Dimer Quantitative (DVT/PE )on 09-23-2024 D-DIMER QUANT 0.33 FEU/ug/m Normal 0.27-0.49 [facility] Comment on above: Result Comment: NORM AL D-Dimer level (<0.50) indicates no DVT or PE. Performed By: #### L 500.2500, L100.0100, L300.8000 #### [facility] [address] [facility] [place], [address] Emergency Department Summary on 09-23-2024 Emergency Department Summary [facility] Medical Records Department [address] [place] [address] Emergency Department Summary 09/23/24 MR#: [id number] Acct: [id number] Name: CONCHA MTZ Rep #: [id number] : 1960 64 From: Buck Her MD PCP: KATHI PARADA Status:REG ER Location: ED HPI History of Present Illness Chief Complaint: Chest Pain Detail of Chief Complaint: Right-sided pleuritic chest pain that started several days ago. Informant: patient and spouse/S.O. Onset/Context/Nayan strong Onset: Days Activity at onset: sudden and rest Timing: Continuous and Waxes and wanes Quality: Positive for Aching Location: Right Chest Current Severity: Mild Maximum Severity: Severe Worsened By: Movement of Arm, Movement of Torso, Palpation and Breathing Relieved By: Nothing Associated Symptoms: Positive for Dyspnea and Cough; Negative for Nausea, Vomiting, Diaphoresis, Fever, Lightheadedness, Acid Reflux or Palpitations Narrative Narrative: Patient is a 64-year-old gentleman. He is on disability due to cervical fusion C4-7, chemical exposure to his lungs with restrictive lung disease with 30% capacity. He also has history of COPD. He has no history of PE or DVT. He denies leg pain, swelling discoloration. He denies trauma. He denies fever or chills. Denies headache, visual, ocular auditory symptoms. He denies sore throat. He has mild congestion. 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 Also he is undergoing rheumatoid workup for possible RA. She states she will need a general practitioner as well. Prior Similar Symptoms: No Recent Illness/Hospitaliza tion: No PE Risk Factors: Positive for Recent Travel/Surgery; Negative for Recent Immobilization, Prior DVT or PE, Cancer or OCP + Smoking + >/=35 TAD Risk Factors: Positive for Hypertension; Negative for Marfan's Syndrome or Family History [facility] Medical History Tremors of nervous system PTSD (post-traumatic stress disorder) COPD (chronic obstructive pulmonary disease) Home Medications ???Medication ???Instructions ???Recorded ???Last Taken ???Type doxycycline monohydrate 100 mg 100 mg PO BID #14 CAPSULES 5 Unknown Rx capsule Allergy/AdvReac Type Severity Reaction Status Date / Time No Known Allergies Allergy Verified 09/23/24 11:32 Surgical History (Updated 09/23/24 @ 11:29 by Yohana Orozco) H/O discectomy Social History (Updated 09/23/24 @ 12:[address] Buck Her MD) household members: spouse Smoking Status: Former smoker ROS ROS ED Constitutional Constitutional ED: Reports chills and sweats; Denies fever(s), subjective or weight loss Eyes Eyes: Reports none ENT ENT ED: Denies ear pain, rhinorrhea or sore throat Cardiovascular Cardiovascular: Reports as per HPI; Denies orthopnea or paroxysmal nocturnal dyspnea Respiratory/Chest Respiratory/Chest: Reports cough, dyspnea and dyspnea on exertion; Denies orthopnea or paroxysmal nocturnal dyspnea Gastrointestinal Gastrointestinal: Denies abdominal pain, melena, nausea or vomiting Genitourinary Genitourinary ED: Denies dysuria, hematuria or urinary frequency Musculoskeletal Musculoskeletal: Denies arthralgias or myalgias Integumentary Denies rash Neurologic Neurologic: Denies headache(s) or paresthesias Psychiatric Psychiatric: Denies anxiety or depression Endocrine Endocrinology: Denies cold intolerance or heat intolerance Hematologic/Lymphat ic Hematologic/Lymphat ic: Denies easy bleeding or easy bruising EXAM Physical Exam Const Vital Signs: 09/23/24 10:54 09/23/24 11:27 09/23/24 11:58 Temperature 97.9 F Temperature Source Oral Pulse Rate 102 H 85 Respiratory Rate 16 17 Respiratory Effort Normal Blood Pressure 130/75 H 138/77 H Blood Pressure Mean 93 97 Pulse Ox 98 96 Oxygen Delivery Method Room Air Room Air 09/23/24 12:00 09/23/24 13:00 Temperature Temperature Source Pulse Rate 85 86 Respiratory Rate 16 16 Respiratory Effort Blood Pressure 130/84 H 138/71 H Blood Pressure Mean 99 93 Pulse Ox 96 96 Oxygen Delivery Method Room Air Room Air Positive well nourished and well developed Constitutional Narrative: BMI is 34.1. General Appearance ED: well developed HEENT Reports TM's clear and moist mucous membranes normocephalic and atraumatic Tympanic Membrane ED: Yes TM's clear Eyes PERRL and EOMs intact bilaterally General Eye ED: Negative for pale conjunctiva or scleral icterus Neck no lymphadenopathy, supple and no JVD Chest Wall inspection of chest normal and palpation of chest normal Chest Narrative: Patient has pain to palpation right side. There is no skin lesions noted. There is no crepitus or subcutaneou (more content not included)... Normal [facility] Eosinophil percentageOrdered By: Buck Her on 09-23-2024 Eosinophils/100 WBC (Bld) 2.9 % 0-5 [facility] Erythrocyte distribution wid th ratioOrdered By: Buck Her on 09-23-2024 Erythrocyte distribution width (RBC) [Ratio] 12.2 % 11.6-14.6 [facility] Erythrocyte distribution wid th standard deviationOrdered By: Buck Her on 09-23-2024 Erythrocyte distribution width (RBC) [Ratio] 42.3 fl 35.1-43.9 [facility] Glomerular filtration rate ( GFR) estimation/1.73 sq m using serum, plasma, or whole bOrdered By: Buck Her on 09-23-2024 GFR/1.73 sq M.predicted among non-blacks MDRD (S/P/Bld) [Vol rate/Area] 99 mL/min/{1.73_m2} >60 [facility] Comment on above: mL/min/1.73m2 CKD-EP I Creatinine Equation (2020) Hematocrit Auto (Bld) [Volum e fraction]Ordered By: Buckcarolynn Her on 09-23-2024 Hematocrit (Bld) [Volume fraction] 40.3 % 40-54 [facility] Hemoglobin measurementOrdere d By: Buckcarolynn Her on 09-23-2024 Hemoglobin (Bld) [Mass/Vol] 14.3 g/dL 13.0-16.5 [facility] Immature granulocytes/100 WB C Auto (Bld)Ordered By: Buck Her on 09-23-2024 Immature granulocytes/100 WBC (Bld) 0.400 % 0.0-0.9 [facility] Comment on above: IG% - Immature Granu locytes (promyelocytes, myelocytes and metamyelocytes) > 1% indicates that a LEFT SHIFT is Present. MCV (mean corpuscular volume ) determinationOrdered By: Buckcarolynn Her on 09-23-2024 MCV (RBC) [Entitic vol] 94.2 fL High 80-94 [facility] Mean corpuscular hemoglobin (MCH) [facility]Ordered [facility]: [facility] MCH (RBC) [Entitic mass] 33.4 pg High 27.0-32.0 [facility] Mean corpuscular hemoglobin concentration (MCHC) determinationOrdered By: [facility] on 09-23-2024 MCHC (RBC) [Mass/Vol] 35.5 g/dL 32-36 [facility] Mean platelet volume determi nationOrdered By: Buckcarolynn Her on 09-23-2024 Platelet mean volume (Bld) [Entitic vol] 9.2 fL 6.2-12.0 [facility] Monocyte percentageOrdered B y: Buckcarolynn Her on 09-23-2024 Monocytes/100 WBC (Bld) 10.0 % 0-10 [facility] Neutrophil percentageOrdered By: [facility] on 09-23-2024 Neutrophils/100 WBC (Bld) 68.4 % 47-70 [facility] Nucleated red blood cell per centageOrdered By: Buck Her on 09-23-2024 Nucleated RBC/100 WBC (Bld) [Ratio] 0 % 0-5 [facility] Platelet countOrdered By: Aundrea Her on 09-23-2024 Platelets (Bld) [#/Vol] 184 10*3/uL 150-450 [facility] Potassium measurement (mass/ volume)Ordered By: Buck Her on 09-23-2024 Potassium (Unsp spec) [Mass/Vol] 4.5 mmol/L 3.3-5.1 [facility] RBC Auto (Bld) [#/Vol]Ordere d By: Buck Her on 09-23-2024 RBC (Bld) [#/Vol] 4.28 10*6/uL Low 4.6-6.2 [facility] Serum creatinine measurement (mass/volume)Ordered By: Buck Her on 09-23-2024 Creatinine [Mass/Vol] 0.78 mg/dL 0.70-1.20 [facility] Serum glucose measurement (m ass/volume)Ordered By: Buck Her on 09-23-2024 Glucose [Mass/Vol] 100 mg/dL High 70-99 [facility] Serum or plasma calcium shobha urement (mass/volume)Ordered By: Buck Her on 09-23-2024 Calcium [Mass/Vol] 9.2 mg/dL 7.6-11.0 [facility] Serum or plasma urea nitroge n measurement (mass/volume)Ordered By: Buck Her on 09-23-2024 Urea nitrogen [Mass/Vol] 13 mg/dL 4-19 [facility] Sodium levelOrdered By: Buckcarolynn Her on 09-23-2024 Sodium [Moles/Vol] 131 mmol/L Low 133-145 [facility] White blood cell (WBC) count Ordered By: Buckcarolynn Her on 09-23-2024 WBC (Bld) [#/Vol] 7.0 10*3/uL 4.4-11.0 [facility] XR cervical spine 2 or 3Von 01-27-2019 XR cervical spine 2 or 3V [facility] [address] [place] [address] XRay Report Signed Patient: CONCHA MTZ MR#: [id number] : 1960 Acct:[id number] Age/Sex: 58 / M Admit Date: 01/27/19 Loc: [facility] Attending Dr: Travon Lora Ordering Physician: Travon Lora Date of Service: 01/27/19 Procedure(s): XR cervical spine 2 or 3V Accession Number(s): [id number] cc: PHYSICIAN INDICATIONS: Arthritis M13.80. TECHNIQUE: A.P., lateral, and odontoid views. FINDINGS: There is disc space narrowing at C4-C7. There is no evidence of fracture or dislocation. No soft tissue swelling is evident. IMPRESSION: Cervical Spine: Mild osteoarthritis as described. Dictated By: Carlos Eldridge MD DD/ 1007 Signed By: Carlos Eldridge MD 01/27/19 1007 Property Insurance Claims Examiner: [facility] ([place]) XR LUMBAR SPINE (2-3 VIEWS)o n 08-05-2018 XR LUMBAR SPINE (2-3 VIEWS) Patient : 1960 Age: 58 years Gender: Male Order Date: 08/04/2018 10:15 AM EXAM: XR LUMBAR SPINE (2-3 VIEWS) NUMBER OF IMAGES: 4 views INDICATION: R52 Pain arthritis COMPARISON: None Alignment of the vertebral bodies appears to be near-anatomic No fracture or suspicious bony lesion is identified. Minimal anterior wedging of the body is noted. The disc spaces demonstrate mild degenerative at the L2-L3 and L4-L5 levels. There are endplate spurs at multiple levels. IMPRESSION: Degenerative changes as noted. The exam has been dictated and signed by Jody Luna PA-C. Franco Storey MD, Radiologist, have reviewed the images and report and concur with these findings. Interpreted by: MD Jody Reyes PA-C Signed by: Franco Garcia MD 08/05/18 Final result Normal [facility] Vital Signs Date Time Vital Sign Value Performing Clinician Vashti comer 01-21-2025 12:18-0400 Body height 181.[address] Buck Her MD Work Phone: 4(726)503-857325 [place] [address] 01-21-2025 12:18-0400 Body mass index (BMI) [Ratio] 32.8 kg/m2 Dr. Buck Her MD Work Phone: 6(508)381-313749 [place] [address] 01-21-2025 12:18-0400 Body temperature 98.8 [degF] Dr. Buck Her MD Work Phone: 6(760)623-793849 [place] [address] 01-21-2025 12:18-0400 Body weight 108.[address] Buck Her MD Work Phone: 7(276)246-693549 [place] [address] 01-21-2025 12:18-0400 Diastolic blood pressure 86 mm[Hg] Dr. Buck Her MD Work Phone: 9(999)314-920849 [place] [address] 01-21-2025 12:18-0400 Heart rate 86 /min Dr. Buck Her MD Work Phone: 3(249)714-089449 [place] [address] 01-21-2025 12:18-0400 Respiratory rate 16 /min Dr. Buck Her MD Work Phone: 1(987)439-850949 [place] [address] 01-21-2025 12:18-0400 SaO2% (BldA) [Mass fraction] 98 % Dr. Buck Her MD Work Phone: 7(036)616-459149 [place] [address] 01-21-2025 12:18-0400 Systolic blood pressure 142 mm[Hg] Dr. Buck Her MD Work Phone: 3(297)658-607949 [place] [address] 09-23-2024 13:17-0400 Body temperature 98.4 [degF] Dr. Buck Her MD Work Phone: 6(395)355-488649 [place] [address] 09-23-2024 13:17-0400 Diastolic blood pressure 74 mm[Hg] Dr. Buck Her MD Work Phone: 1(578)229-256849 [place] [address] 09-23-2024 13:17-0400 Heart rate 91 /min Dr. Buck Her MD Work Phone: 1([phone])786-836649 [place] [address] 09-23-2024 13:17-0400 Respiratory rate 22 /min Dr. Buck Her MD Work Phone: 1(488)156-441749 [place] [address] 09-23-2024 13:17-0400 SaO2% (BldA) [Mass fraction] 97 % Dr. Buck Her MD Work Phone: [facility] 09-23-2024 13:17-0400 Systolic blood pressure 125 mm[Hg] Dr. Buck Her MD Work Phone: 2(557)566-714652 [place] [address] 09-23-2024 10:54-0400 Body height 181.[address] Buck Her MD Work Phone: [facility] 09-23-2024 10:54-0400 Body mass index (BMI) [Ratio] 34.1 kg/m2 Dr. Buck Her MD Work Phone: [facility] 09-23-2024 10:54-0400 Body weight 112.[address] Buck Her MD Work Phone: [facility] Encounters Encounter Date Encounter Type Care Provider Facility Start: 01-21-2025 End: 01-21-[address] Buck Her MD Work Phone: [facility] Start: 01-21-2025 End: 01-21-2025 Patient encounter procedure Romulo Miller PA [facility] Work Phone: Start: 09-23-2024 End: 09-23-2024 Emergency department patient visit Dr. Buck Her MD Work Phone: -Emergency Department Work Phone: Start: 01-27-2019 End: 01-27-2019 Patient encounter procedure Travon Parham Damiansamm Facility:[facility] Start: 08-04-2018 End: 08-07-2018 Patient encounter procedure TRAVON ROBLEROD DAMIANJERALDANA [facility] Start: 07-29-2018 End: 07-30-2018 Patient encounter procedure TRAVON LORA [facility] Procedures Date Procedure Procedure Detail Performing Clinician Start: 01-21-2025 X-ray of chest, PA a nd lateral views Dr. Buck Her MD Work Phone: Start: 09-23-2024 D-dimer assay, quantitative Dr. Buck Her MD Work Phone: Comment on above: NORMAL D-Dimer level (<0.50) indicates no DVT or PE. Start: 09-23-[address] Buck Her MD Work Phone: Start: 09-23-2024 X-ray of chest, PA a nd lateral views Dr. Buck Her MD Work Phone: Start: 08-04-2018 Radex spine lumbosac ral 2/3 views TRAVON XELLER Start: 07-29-2018 Echo tthrc r-t 2d w/ wo m-mode complete rest&st TRAVON XELLER Start: 07-29-2018 Echo tthrc r-t 2d w/wom-mode compl spec&colr d TRAVON XELLANA Plan of Treatment Date Care Activity Detail Author Start: 09-23-2024 [facility] Patient Education ED Pneumonia (Adult) [facility] Work Phone: Patient referral [facility] Work Phone: Payers Date Payer Category Payer Medicare [id number] 2019 Self-pay 2019 Unknown [id number] 2014 Unknown [id number] 1960 Unknown [id number] 1960 Unknown [id number] 1960 Unknown [id number] 2.16. [id number] Unknown [id number] Unknown [id number] Social History Date Type Detail Facility Start: 09-23-2024 End: 01-21-2025 Tobacco smoking status NHIS Ex-smoker (finding) [facility] Start: 1960 Sex Assigned At Male [facility] Mental Status Date Assessment Result Facility 09-23-2024 Cognitive function Level Of Cons ciousness Awake;Alert;Appropriate;Follow s Commands [facility] Work Phone: Discharge summary 09-23-2024 Note Date & Type Note Facility 09-23-2024 Discharge summary [facility] Radiology Diagnostic study note 09-23-2024 Note Date & Type Note Facility 09-23-2024 Radiology Diagnostic study note [facility] Imaging Services [address] [place], [place] [address] Chest PA and Lateral MR#: [id number] Acct: [id number] Name: CONCHA MTZ Rep #: [id number] : 1960 M 64 From: Barry Hopper MD PCP: Status: PRE ER Study:Chest PA and Lateral Date of Exam: 09/23/24 Exam# [id number] Ordering Dr: Aundrea Her MD PROCEDURE: CHEST PA AND LATERAL 09/23/2024 REASON FOR EXAM: PLEURITIC RIGHT-SIDED CHEST PAIN TECHNIQUE: Frontal and lateral views of the chest. COMPARISON: None FINDINGS: Hardware: EKG electrodes are seen. Heart: Heart size is upper limits of normal. Mediastinum: The mediastinal contour is unremarkable. Lungs: Focal increased markings are seen in the posterior medial segment of the right lower lobe. Early infiltrate should be ruled out. Bones: Degenerative changes are identified within the thoracic spine. RAD/Chest PA and Lateral IMPRESSION: Findings suggestive of focal right lower lobe infiltrate. Reading Location: [facility] CC: Dr. Buck Her MD ~ Property Insurance Claims Examiner: Signed [facility] Discharge summary Note Date & Type Note Facility Discharge summary Note Date/Time September 23, 2024 1:12pm [facility] Medical Records Department [address] [place] [address] Emergency Department Summary 09/23/24 MR#: [id number] Acct: [id number] Name: CONCHA MTZ Rep #:[id number] : 1960 64 From: Buck Her MD PCP: KATHI PARADA Status:REG ER Location: ED HPI History of Present Illness Chief Complaint: Chest Pain Detail of Chief Complaint: Right-sided pleuritic chest pain that started severaldays ago. Informant: patient and spouse/S.O. Onset/Context/Timing Onset: Days Activity at onset: sudden and rest Timing: Continuous and Waxes and wanes Quality: Positive for Aching Location: Right Chest Current Severity: Mild Maximum Severity: Severe Worsened By: Movement of Arm, Movement of Torso, Palpation and Breathing Relieved By: Nothing Associated Symptoms: Positive for Dyspnea and Cough; Negative for Nausea, Vomiting, Diaphoresis, Fever, Lightheadedness, Acid Reflux or Palpitations Narrative Narrative: Patient is a 64-year-old gentleman. He is on disability due to cervical fusion C4-7, chemical exposure to his lungs with restrictive lung disease with 30% capacity. He also has history of COPD. He has no history of PE or DVT. He denies leg pain, swelling discoloration. He denies trauma. He denies fever or chills. Denies headache, visual, ocular auditory symptoms. He denies sore throat. He has mild congestion. 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 Also he is undergoing rheumatoid workup for possible RA. She states she will need a general practitioner as well. Prior Similar Symptoms: No Recent Illness/Hospitalization: No PE Risk Factors: Positive for Recent Travel/Surgery; Negative for Recent Immobilization, Prior DVT or PE, Cancer or OCP + Smoking + >/=35 TAD Risk Factors: Positive for Hypertension; Negative for Marfan's Syndrome or Family History [facility] Medical History Tremors of nervous system PTSD (post-traumatic stress disorder) COPD (chronic obstructive pulmonary disease) Home Medications ?Medication ?Instructions ?Recorded ?Last Taken ?Type doxycycline monohydrate 100 mg 100 mg PO BID #14 CAPSU LES 09/23/24 Unknown Rx capsule Allergy/AdvReac Type Severity Reaction Status Date / Time No Known Allergies Allergy Verified 09/23/24 11:32 Surgical History (Updated 09/23/24 @ 11:29 by Yohana Orozco) H/O discectomy Social History (Updated 09/23/24 @ 12:[address] Buck Her MD) household members: spouse Smoking Status: Former smoker ROS ROS ED Constitutional Constitutional ED: Reports chills and sweats; Denies fever(s), subjective or weight loss Eyes Eyes: Reports none ENT ENT ED: Denies ear pain, rhinorrhea or sore throat Cardiovascular Cardiovascular: Reports as per HPI; Denies orthopnea or paroxysmal nocturnal dyspnea Respiratory/Chest Respiratory/Chest: Reports cough, dyspnea and dyspnea on exertion; Denies orthopnea or paroxysmal nocturnal dyspnea Gastrointestinal Gastrointestinal: Denies abdominal pain, melena, nausea or vomiting Genitourinary Genitourinary ED: Denies dysuria, hematuria or urinary frequency Musculoskeletal Musculoskeletal: Denies arthralgias or myalgias Integumentary Denies rash Neurologic Neurologic: Denies headache(s) or paresthesias Psychiatric Psychiatric: Denies anxiety or depression Endocrine Endocrinology: Denies cold intolerance or heat intolerance Hematologic/Lymphatic Hematologic/Lymphatic: Denies easy bleeding or easy bruising EXAM Physical Exam Const Vital Signs: 09/23/24 10:54 09/23/24 11:27 09/23/24 11:58 Temperature 97.9 F Temperature Source Oral Pulse Rate 102 H 85 Respiratory Rate 16 17 Respiratory Effort Normal Blood Pressure 130/75 H 138/77 H Blood Pressure Mean 93 97 Pulse Ox 98 96 Oxygen Delivery Method Room Air Room Air 09/23/24 12:00 09/23/24 13:00 Temperature Temperature Source Pulse Rate 85 86 Respiratory Rate 16 16 Respiratory Effort Blood Pressure 130/84 H 138/71 H Blood Pressure Mean 99 93 Pulse Ox 96 96 Oxygen Delivery Method Room Air Room Air Positive well nourished and well developed Constitutional Narrative: BMI is 34.1. General Appearance ED: well developed HEENT Reports TM's clear and moist mucous membranes normocephalic and atraumatic Tympanic Membrane ED: Yes TM's clear Eyes PERRL and EOMs intact bilaterally General Eye ED: Negative for pale conjunctiva or scleral icterus Neck no lymphadenopathy, supple and no JVD Chest Wall inspection of chest normal and palpation of chest normal Chest Narrative: Patient has pain to palpation right side. There is no skin lesions noted. There is no crepitus or subcutaneous air. Resp normal respiratory effort and clear to auscultation bilaterally Cardio regular rate, regular rhythm, S1 normal heart sound, S2 normal heart sound and no murmurs GI normal to inspection, nondistended, normoactive bowel sounds, soft to palpation,non-tender, non-distended and no masses; Negative for hepatosplenomegaly Back/Spine no CVA tenderness and no thoracic nor lumbar tenderness Extremity normal to inspection General Extremety ED: Negative for edema or pulses abnormal General Extremity: Negative for edema or pulses abnormal Neuro oriented x3, CN's II-XII intact bilaterally, no sensory deficits noted and gait normal Sensorium / Orientation: awake and alert Motor Exam: strength 5/5 throughout Psych mental status grossly normal Skin no rashes or lesions noted and no wounds MDM MDM MDM Narrative Medical decision making narrative: Differential diagnosis is pleurisy, pneumonia, pneumothorax, pulmonary embolus and musculoskeletal since there is a muscular component. Workup included chest x-ray, D-dimer, CBC and electrolytes to assess for endorgan dysfunction. Lab Data Attestation: I reviewed the patient's lab results. Lab results narrative: CBC is unremarkable. Electrolyte panel is unremarkable. Glucose slightly elevated 100 with normal CO2 anion gap. Labs: Laboratory Results - last 24 hr 09/23/24 11:28 WBC 7.0 RBC 4.28 L Hgb 14.3 Hct 40.3 MCV 94.2 H MCH 33.4 H MCHC 35.5 RDW Std Deviation 42.3 RDW Coeff of Nighat 12.2 Plt Count 184 MPV 9.2 Immature Gran % (Auto) 0.400 Neut % (Auto) 68.4 Lymph % (Auto) 17.7 L Rusk % (Auto) 10.0 Eos % (Auto) 2.9 Baso % (Auto) 0.6 Absolute Neuts (auto) 4.8 Absolute Lymphs (auto) 1.24 Nucleated RBC % 0 D-Dimer Quant (PE/DVT) 0.33 Sodium 131 L Potassium 4.5 Chloride 97 L Carbon Dioxide 23.6 Anion Gap 10 BUN 13 Creatinine 0.78 Estim Creat Clear Calc 122.03 Est GFR (MDRD) Non-Af 99 BUN/Creatinine Ratio 17.1 Glucose 100 H Calcium 9.2 Radiography Chest X-Ray - ED: 2 View and Read by ED Physician (Independently reviewed interpreted by me as negative for congestive heart failure or effusion, pneumothorax. There is evidence of a small right lower infiltrate probably superior segment of the right lower lobe. Cardiac size is normal. Osseous structures reveal no abnormality) Diagnostic Testing: Clinical Impression(s) from Imaging Studies Chest X-Ray 09/23/24 11:21 IMPRESSION: Findings suggestive of focal right lower lobe infiltrate. Reading Location: [facility] Treatment and Re-Evaluation :: Curb 65 score is 0. PSI/port score is 64. Risks class II with a 0.6 to 0.9% mortality. Patient is appropriate for outpatient therapy. He was treated with doxycycline. Discharge Plan Triage Chief Complaint: Chest Pain ED Provider: Buck Her Dx/Rx/DC Orders Clinical Impression: Right lower lobe pneumonia, Pleuritic chest pain, History of COPD, Diabetes mellitus with hyperglycemia, Chronic restrictive lung disease Instructions: ED Pneumonia (Adult) Prescriptions: New doxycycline monohydrate 100 mg capsule 100 mg PO BID Qty: 14 0RF Primary Care Provider: KATHI PARADA Referrals: KATHI PARADA [Other] Bridgette Feldman MD [Med Staff - Recycling Program Manager] - 3-5 Days Isael Johnson DO [Med Staff - Active Staff] - 1-2 Weeks Jethro Chapman MD [Med Staff - Courtesy Staff] - 1-2 Weeks Activity Restrictions/Additional Instructions: Take medication as prescribed and until gone. You are referred to Dr. Zaragoza as he has a general internal medicine doctor. You were referred to Dr. Isael Johnson who is a firer bisque kiln. In your referred to Dr. Jethro Chapman who is an furniture delivery driver. Print Language: Namibian Disposition Disposition: Home, Self Care What to do if you have Problems For any increased pain, shortness of breath, bleeding, nausea or vomiting, chestpain, or any unexpected problems, contact your Primary Care Provider. Call [facility] ([phone]) or report to the closest Emergency Room. Call 911 if necessary. 09/23/24 1312 <Electronically signed by Buck Her MD> Cosigner Signature (if applicable): CC: KATHI PARADA ~ Signed [facility] Work Phone: Evaluation note Note Date & Type Note Facility Evaluation note No assessment information availa ble [facility] Work Phone: Evaluation note Note Date & Type Note Facility Evaluation note Diagnosis Onset Date Resolution Acute bacterial conjunctivitis acute January 21, 2025 11:56am [facility] [place]: Hospital Discharge instructions Note Date & Type Note Facility Hospital Discharge instructions Additional Instructions Take medication as prescribed and until gone. You are referred to Dr. Zaragoza as he has a general internal medicine doctor. You were referred to Dr. Isael Johnson who is a firer bisque kiln. In your referred to Dr. Jethro Chapman who is an furniture delivery driver. [facility] Work Phone: Reason for referral (narrative) Note Date & Type Note Facility Reason for referral (narrative) No reason for referral information available [facility] Work Phone: Summary Purpose Family History Relationship Condition Age at Onset Recorded Date/T karey Not Specified Cardiac disease Unknown Malignant neoplasm Unknown Advance Directives Advance Directive Response Recorded Date/ Time Do you have a Healthcare Power of Manager Applied? No September 23, 2024 11:27am Chief Complaint and Reason for Visit Chief Complaint Admit Date chest pain September 23, 2024 10:53 am Chief Complaint Admit Date chest pain September 23, 2024 10:53 am CONGESTION, BACK PAIN January 21 11:56am cough January 21, 2025 12:40pm Reason for Visit Admit Date Acute bacterial conjunctivitis January 21, 2025 11:56am Additional Source Comments (unrecognized sect ion and content) No Status Records FoundNo Status Records FoundNo Status Records Found INFORMATION SOURCE (unrecogn ized section and content) DATE CREATED AUTHOR 08/10/2018 [facility] DATE CREATED AUTHOR AUTHOR'S ORGANIZ ATION 01/31/2019 [facility] ([place] DATE CREATED AUTHOR AUTHOR'S ORGANIZ ATION 10/01/2024 [facility] Teams (unrecognized sec tion and content) Team Status: Active Member Role Status Dates KATHI PARADA Primary Care Provider Active Team Status: Inactive Member Role Status Dates Dr. Buck Her MD Emergency Provider Active Sta rt: September 23, 2024 End: September 23, 2024 KARMA ARMENTA Primary Care Provider Active Sta rt: September 23, 2024 End: September 23, 2024 Team Status: Inactive Member Role/Relationship Status Dates Dr. Buck Her MD Attending Provider Active Sta rt: September 23, 2024 End: September 23, 2024 Dr. Buck Her MD Emergency Provider Active Sta rt: September 23, 2024 End: September 23, 2024 KARMA ARMENTA Primary Care Provider Active Sta rt: September 23, 2024 End: September 23, 2024 Team Status: Inactive Member Role/Relationship Status Dates CORAL Dumont Attending Provider Active Sta rt: January 21, 2025 End: January 21, 2025 Team Status: Active Member Role/Relationship Status Dates CORAL Dumont Attending Provider Active Sta rt: January 21, 2025 CORAL Dumont Referring Provider Active Sta rt: January 21, 2025 Goals (unrecognized section and content) Goals may be documented in a n alternate sectionGoals may be documented in an alternate section FOR RECORDS PERTAINING TO PATIENTS WHO ARE OR HAVE BEEN ENROLLED IN A CHEMICAL DEPENDENCY/SUBSTANCEABUSE PROGRAM, SOME INFORMATION MAY BE OMITTED. This clinical summary was aggregated from multiple sources. Caution should be exercised in using it in the provision of clinical care. This summary normalizes information from multiple sources, and as a consequence, information in this document may materially change the coding, format and clinical context of patient data. In addition, data may be omitted in some cases. CLINICAL DECISIONS SHOULD BE BASED ON THE PRIMARY CLINICAL RECORDS. [facility]. provides no warranty or guarantee of the accuracy or completeness of information in this document.
[2025-01-23 13:16] LABS: Anion Gap 12 (5-15); BUN 12 mg/dL (4-19); BUN/Creat Ratio 15.6 RATIO (10-20); Calcium,Total 8.9 mg/dL (7.6-11.0); Carbon Dioxide 22.4 mmol/L (21.0-32.0); Chloride 101 mmol/L (98-108); Estimated Creatinine Clearance 121.16 ml/min (50-250); Glucose 106 mg/dL (70-99); Potassium 4.6 mmol/L (3.3-5.1)
[2025-01-23 13:20] LABS: Pro- Brain NATRIURETIC PEPTIDE < 36 pg/mL (<=900); Troponin T High Sensitivity 7 ng/L (<=22)
[2025-01-23 13:30] VITALS: BP 124/87; PULSE 76; RESP 18; O2SAT 99
[2025-01-23 14:20] VITALS: O2SAT 98
[2025-01-23 15:00] VITALS: BP 115/89; PULSE 79; RESP 19; O2SAT 98
[2025-01-23 15:41] LABS: Troponin T High Sens 2 HR 7 ng/L (<=22)
[2025-01-23 15:53] VITALS: BP 115/89; PULSE 79; RESP 19; TEMP 36.6; O2SAT 98
== END 2025-01-23 16:06 | disposition home or self-care (01) ==
PROVIDERS: Emergency Provider Emergency Medicine; Visit Provider Emergency Medicine
DX: I11.0 Hypertensive heart disease with heart failure (principal); I50.9 Heart failure, unspecified; J44.1 Chronic obstructive pulmonary disease with (acute) exacerbation; J06.9 Acute upper respiratory infection, unspecified; H72.92 Unspecified perforation of tympanic membrane, left ear; R73.03 Prediabetes; Z87.891 Personal history of nicotine dependence
CPT/HCPCS: 71046; 80048; 83880; 84484; 85025; 93005; 94640; 96360; 96361; 99285; A4216